=== PATIENT | male | born 1980 | race Caucasian/White ===

== ENCOUNTER 2020-10-13 14:25 | Outpatient (CLI) | payer BC ==
[~2020-10-13 14:25] MED LIST: Magnevist 469MG/ML 20 ML VIAL ONE
--- NOTE | 2020-10-13 15:45 | MRI ---
BRAIN MRI WITH AND WITHOUT CONTRAST: DATE: 10/13/2020. COMPARISON: None. HISTORY: Sudden loss of hearing on the right. TECHNIQUE: Multiplanar multisequence MR imaging of the brain is obtained with and without contrast using an inte rnal auditory canal protocol. FINDINGS: The diffusion weighted imaging demonstrates no evidence for acute infarction. Regional bone marrow signal intensity appears within normal limits. The imaged paranasal sinuses and mastoid air cells appear well aerated. Arterial flow voids at the axial level of the skull base appear grossly unremarkable on the T2 weight ed imaging. Thin section axial T2 weighted imaging through the skull base demonstrates no abnormality in the soledad on of the cerebellopontine angle, internal auditory canal, cochlea, vestibule, or semicircular canals on either side. Thin section post contrast imaging through the skull base demonstrates no abnormal enhancement in the region of the cerebellopontine angle, IAC, cochlea, vestibule, or semicircular canals on either side . The whole brain post contrast imaging demonstrates no abnormal enhancement within the brain parenchym a. IMPRESSION: Unremarkable contrast-enhanced MRI utilizing the internal auditory canal protocol. POS: [facility]
== END 2020-10-13 14:26 | disposition home or self-care (01) ==
LOC: BICMRI 14:25
PROVIDERS: ATTEND Otolaryngology Plastic Surgery within the Head & Neck
DX: H91.20 Sudden idiopathic hearing loss, unspecified ear (principal)
CPT/HCPCS: 70553; A9579

== ENCOUNTER 2023-07-05 13:37 | Outpatient (CLI) | payer OTHER | END 2023-07-05 13:38 | disposition home or self-care (01) | LOC: MRI 13:37 | PROVIDERS: ATTEND Nurse Practitioner Family | DX: S46.19 Other injury of muscle, fascia and tendon of long head of biceps (principal); R60.0 Localized edema ==